=== PATIENT | female | born 1955 | race Caucasian/White ===

== ENCOUNTER → 2020-05-06 | Outpatient (CLI) | payer BC ==
[~2020-05-06] MED LIST: FEXO60TA25 PO; FLUT9.9S NS; HYDR1TAB16 PO; REGADENOSON 0.4 MG/5 ML DISP.SYRIN. IV ONE
--- NOTE | 2020-05-06 16:11 | RAD ---
MR#: [id number] Date of Study: 05/06/2020 Ordering Physician: CAPRI CUELLO Referring Physician: SARAHI SPAULDING Tech: RT Svetlana WilkinsR) (N) APPROVED REPORT Test Type: Pharmacological Stress Nurse/Tech: Mary Dawson RN Test Indications: Elevated troponin,chest pain Cardiac History: No known cardiac Medications: See Electronic Medical Record Medical History: See Electronic Medical Record Resting ECG: SR with BBB Resting Heart Rate: 71 bpm Resting Blood Pressure: 136/72mmHg Pretest Chest Pain: No chest pain Nurse/Tech Notes S1,S2 and lungs clear to auscultation. Consent: The procedure was explained to the patient in lay terms. Informed consent was witnessed. Ej eout was entered into y prime. History and Stress Test performed by RT Claudette (R) (N) Pharm. Details Pharmacologic stress testing was performed using 0.4mg per 5ml of regadenoson given intravenously ove r 7-10 seconds. Stress Symptoms Dyspnea,felt "weird" POST EXERCISE Reason for Termination: Infusion complete Target HR: No Max HR: 120 bpm 90% of Maximum Predicted HR: 133 bpm Max Blood Pressure: 156/65mmHg Blood Pressure response to exercise: Normal blood pressure response during stress. Heart Rate response to exercise: WNL Chest Pain: No. Arrhythmia: No. ST Change: No. INTERPRETATION Stress EKG Conclusion: Baseline EKG showed sinus rhythm. No ischemic changes at peak stress. No arr hythmias. Imaging Protocol IMAGE PROTOCOL: Rest Tc-99m/stress Tc-99m 1 day Rest: Stress: Viability: Radiopharm.Tc99m [id number] Sestamibi Dose10.6mCi 32mCi Duration 13min. 13min. Img Date 05/06/2020 05/06/2020 Inj-Img Ukvd51njm. 60min. Rest Admin Site:IV - Left AntecubitalAdministrator:RT Svetlana WilkinsR)(N) Stress Admin Site: IV - Left AntecubitalAdministrator: ERVIN Beach, ARRT (R)(N) STRESS DATA End Diast. Vol.43.0mlLVEDV index BSA23.0ml End Syst. Vol.0.0mlLVESV index BSA0.0ml Myocardial Mass82.0gEject. Eigzwadk009.0% Stress Scores Regional WT0.00Summed WT0.00 Regional WM0.00Summed WM0.00 Study quality was good. Left Ventricular size was Normal at Rest and Stress. Lung uptake was . Left Ventricular ejection fraction is >80%. The rest and stress images show normal perfusion, normal contraction and thickening. LV Perf. Quant 17 Seg. SSS5.00 17 Seg. SRS3.00 17 Seg. SDS3.00 Stress Defect Extent (% LAD)0.00Rest Defect Extent (% LAD)0.00Rev. Defect Extent (% LAD)0.00 Stress Defect Extent (% LCX) 32.50Rest Defect Extent (% LCX)0.00Rev. Defect Extent (% LCX)5.00 Stress Defect Extent (% RCA)0.00Rest Defect Extent (% RCA)0.00Rev. Defect Extent (% RCA)0.00 Stress Defect Extent (% DAYLIN)5.70Rest Defect Extent (% DAYLIN)0.00Rev. Defect Extent (% DAYLIN)0.90 Conclusion 1. Regadenoson cardioisotope stress test did not show any evidence of ischemia or infarct. 2. Normal left ventricular systolic function with ejection fraction calculated at >80%. 3. Low risk for cardiac events. Signed by : Capri Cuello, Electronically Approved : 05/06/2020 16:10:42
--- NOTE | 2020-05-06 16:24 | CARD ---
MR#: [id number] Date of Study: 05/06/2020 Ordering Physician: CAPRI SALGADO, Referring Physician: CAPRI SALGADO, Tech: Carolann Serna APPROVED REPORT EXAM: Two-dimensional and M-mode echocardiogram with Doppler and color Doppler. Other Information Quality : AverageHR: 75bpm INDICATION Chest Pain Elevated Troponin 2D DIMENSIONS RVDd2.6 (2.9-3.5cm)Left Atrium(2D)2.8 (1.6-4.0cm) IVSd0.8 (0.7-1.1cm)Aortic Root(2D)3.0 (2.0-3.7cm) LVDd4.4 (3.9-5.9cm)LVOT Diameter1.9 (1.8-2.4cm) PWd1.1 (0.7-1.1cm)LVDs2.3 (2.5-4.0cm) FS (%) 48.8 %SV70.4 ml LVEF(%)70.4 (>50%) Aortic Valve AoV Peak Glen.119.6cm/sAoV VTI26.9cm AO Peak GR.5.7mmHgLVOT Peak Glen.101.4cm/s LVOT VTI 21.38cmAO Mean GR.3mmHg STEFAN (VMAX)1.70qe0LPT (VTI)2.34cm2 Mitral Valve MV E Fgkvvgde40.3cm/sMV DECEL PZCE396xs MV A Tamfliun75.3cm/sMV TCH72er E/A Ratio1.0MVA (PHT)4.00cm2 TDI E/Lateral E'7.1E/Medial E'7.7 Pulmonary Valve PV Peak Etxownsa34.2cm/sPV Peak Grad.3mmHg Tricuspid Valve TR P. Ucoderrf233cl/sRAP [id number] TR Peak Gr.45utPsRHRP06vyIg Pulmonary Vein S1 Jocbllts31.5cm/sD2 Nvtqgxhf51.9cm/s PVa [id number] LEFT VENTRICLE The left ventricle is normal size. There is normal left ventricular wall thickness. The left ventricu lar systolic function is normal. The Ejection Fraction is 60-65%. There is normal LV segmental wall m otion. RIGHT VENTRICLE The right ventricle is normal size. There is normal right ventricular wall thickness. The right ventr icular systolic function is normal. ATRIA The left atrium size is normal. The right atrium size is normal. The interatrial septum is intact wit h no evidence for an atrial septal defect or patent foramen ovale as noted on 2-D or Doppler imaging. AORTIC VALVE The aortic valve is normal in structure and function. Doppler and Color Flow revealed no significant aortic regurgitation. There is no significant aortic valvular stenosis. Calculated aortic valve area is 2.16 cm2 with maximum pressure gradient of 7 mmHg and mean pressure gradient of 4 mmHg. MITRAL VALVE The mitral valve is normal in structure and function. There is no evidence of mitral valve prolapse. There is no mitral valve stenosis. Doppler and Color-flow revealed trace mitral regurgitation. TRICUSPID VALVE The tricuspid valve is normal in structure and function. Doppler and Color Flow revealed trace tricus pid regurgitation with an estimated PAP of 28 mmHg. There is no tricuspid valve stenosis. PULMONIC VALVE The pulmonic valve is not well visualized. Doppler and Color Flow revealed trace pulmonic valvular re gurgitation. GREAT VESSELS The aortic root is normal in size. The IVC is normal in size and collapses >50% with inspiration. PERICARDIAL EFFUSION There is no evidence of significant pericardial effusion. Critical Notification Critical Value: No <Conclusion> The left ventricular systolic function is normal. The Ejection Fraction is 60-65%. There is normal LV segmental wall motion. Trace mitral regurgitation. Trace tricuspid regurgitation with an estimated PAP of 28 mmHg. There is no evidence of significant pericardial effusion. Signed by : Capri Salgado, Electronically Approved : 05/06/2020 16:24:23
== END ==
LOC: ECHO 08:45
PROVIDERS: ATTEND Internal Medicine Cardiovascular Disease
DX: R07.89 Other chest pain (principal); R79.89 Other specified abnormal findings of blood chemistry
CPT/HCPCS: 78452; 93017; 93306; A9500; J2785